=== PATIENT | female | born 1990 | race Caucasian/White ===

== ENCOUNTER 2016-09-02 04:03 | Emergency (ER) | payer OTHER ==
[~2016-09-02] VITALS: Ht 165.1 cm; Wt 87.0 kg
[2016-09-02 04:10] VITALS: BP 130/90; PULSE 109; RESP 24; TEMP 97.8; O2SAT 99
[2016-09-02] MEDS ORDERED: SODIUM CHLOR 0.9% 1000 ML INJ 1,000 ML IV ONE (04:35)
[2016-09-02] MEDS ORDERED: NORE1TAB PO (04:38)
[2016-09-02] MEDS ORDERED: MAXA10TA2 PO (04:38)
[2016-09-02] MEDS ORDERED: CYMB60CA PO (04:38)
[2016-09-02] MEDS ORDERED: GABA600T PO (04:38)
--- NOTE | 2016-09-02 04:40 | PD ---
HPI Chief Complaint: Headache Time Seen by Provider: 04:36 Travel History International Travel<30 days: No Contact w/Intl Traveler<30days: No Traveled to known affect area: No History of Present Illness HPI 26-year-old female presents to the emergency department for complaint of migraine headache. Headache is right-sided was associated photophobia and nausea and vomiting. Headache is typical of her migraines. Last menstrual period was approximately 3 weeks ago and somewhat normal for her although she has had some breakthrough bleeding on her control pills. Patient reportedly has been diagnosed with migraine headaches since age 2. Patient recently moved here from [place] and has not yet established with a primary care provider or neurologist. Patient states headache began around 6 PM last evening and has been persistent. Patient states change in diet and stress oftentimes will trigger a migraine and she has been under a lot of stress reportedly. Patient has family history of migraine in her mother and father as well as multiple extended family members and also family history of cerebral aneurysm. Patient has had imaging study in the past for family history of aneurysm that has been reportedly negative. Patient does not report any recent febrile illness or respiratory illness no report of neck pain or stiffness. No report of new upper extremity or lower extremity numbness tingling or weakness or ataxia of gait. Patient rates pain 9/10 in intensity. Patient does not describe the pain as sudden onset thunderclap or worst ever. Patient does note urinary frequency. PFSH Past Medical History Narrative Medical Migraine headache peptic ulcer disease, Titi's asthma cholecystectomy orthopedic surgery no tobacco use nursing notes reviewed Family History Family History: headaches migraines Social History Tobacco Use: No Allergies-Medications (Allergen,Severity, Reaction): Coded Allergies: Codeine (Verified Allergy, Severe, Itching, 09/02/16) "HOT AND ITCHY, ABOUT TO PASS OUT" Lanolin (Verified Allergy, Severe, Rash, 09/02/16) Penicillin (Verified Allergy, Severe, Shortness of Breath, 09/02/16) Adhesives (Verified Allergy, Intermediate, Rash, 09/02/16) Nonsteroidal Anti-Inflammatory Agts (Verified Adverse Reaction, Unknown, ) "HAVE A HISTORY OF ULCERS, NOT ALLOWED TO HAVE THEM" Reported Meds & Prescriptions Reported Meds & Active Scripts Active Zofran Odt (Ondansetron Odt) 4 Mg Tab 4 Mg SL Q6HR PRN Bactrim DS (Sulfamethoxazole-Trimethoprim) 800-160 Mg Tab 1 Tab PO BID Reported Maxalt (Rizatriptan Benzoate) 10 Mg Tab 1 Tab PO BID PRN Cymbalta DR (Duloxetine HCl) 60 Mg Capdr 100 Mg PO DAILY Gabapentin 600 Mg Tab 600 Mg PO HS [place] Fe /20 (Norethindrone-Ethinyl Estradiol-Fe) 1-20 Mg-Mcg Tab 1 Tab PO DAILY Narrative Medication control pills Review of Systems Except as stated in HPI: all other systems reviewed are Neg General / Constitutional: No: Fever, Chills Eyes: Positive: Photophobia, No: Diploplia, Blurred Vision HENT: Positive: Headaches, No: Neck Stiffness, Neck Pain Cardiovascular: No: Chest Pain or Discomfort Respiratory: No: Shortness of Breath Gastrointestinal: Positive: Nausea, Vomiting, No: Abdominal Pain Genitourinary: Positive: Frequency, No: Urgency, Dysuria, Hematuria, Flank Pain Musculoskeletal: No: Myalgias, Arthralgias Skin: No Rash Neurologic: Positive: Headache, No: Weakness, Dizziness, Syncope, Focal Abnormalities, Coordination Problem, Change in Mentation, Slurred Speech, Paresthesia Psychiatric: No: Anxiety Hematologic/Lymphatic: No: Easy Bruising Physical Exam Narrative GENERAL: Well-developed well-nourished female in no acute distress no respiratory distress; GCS 15 SKIN: Warm and dry. HEAD: Normocephalic. EYES: No scleral icterus. No injection or drainage. Pupils equal round reactive to light extraocular muscles intact. Funduscopic exam no papilledema. NECK: Supple, trachea midline. No JVD or lymphadenopathy. No meningismus no nuchal rigidity. CARDIOVASCULAR: Regular rate and rhythm without murmurs, gallops, or rubs. RESPIRATORY: Breath sounds equal bilaterally. No accessory muscle use. GASTROINTESTINAL: Abdomen soft, non-tender, nondistended. MUSCULOSKELETAL: No cyanosis, or edema. BACK: Nontender without obvious deformity. No CVA tenderness. Data Data Last Documented VS Vital Signs Date Time Temp Pulse Resp B/P Pulse Ox O2 Delivery O2 Flow Rate FiO2 09/02/16 06:42 87 18 124/78 98 09/02/16 05:55 Room Air 09/02/16 04:10 97.8 Orders Ecg Monitoring (09/02/16 04:35) Iv Access Insert/Monitor (09/02/16 04:35) Oximetry (09/02/16 04:35) Sodium Chloride 0.9% Flush (Ns Flush) (09/02/16 04:45) Prochlorperazine Inj (Compazine Inj) (09/02/16 04:45) Diphenhydramine Inj (Benadryl Inj) (09/02/16 04:45) Sodium Chlor 0.9% 1000 Ml Inj (Ns 1000 M (09/02/16 04:35) Ed Urine Pregnancytest Poc (09/02/16 04:40) Urinalysis - C+S If Indicated (09/02/16 04:40) Urine Culture (09/02/16 04:50) Sulfamet-Trimeth Ds 800-160 Mg (Bactrim (09/02/16 06:30) Labs Laboratory Tests Test 09/02/16 04:50 Urine Color STRAW Urine Turbidity CLEAR Urine pH 6.0 Urine Specific [place] 1.014 Urine Protein NEG mg/dL Urine Glucose (UA) NEG mg/dL Urine Ketones NEG mg/dL Urine Occult Blood TRACE Urine Nitrite NEG Urine Bilirubin NEG Urine Leukocyte Esterase NEG Urine RBC 0-3 /hpf Urine WBC 3-5 /hpf Urine Squamous Epithelial 6-8 /hpf Cells Urine Bacteria MANY /hpf Microscopic Urinalysis Comment CULTURE INDICATED MDM Medical Decision Making Medical Screen Exam Complete: Yes Emergency Medical Condition: Yes Medical Record Reviewed: Yes Interpretation(s) Urinalysis: Many bacteria culture indicated POC hCG: Negative Differential Diagnosis Cephalgia-migraine versus tension versus vascular versus allergic Narrative Course IV access obtained patient placed on monitor normal saline bolus administered Compazine 10 mg IV ordered along with Benadryl 50 mg IV At 6:20 AM patient is clinically improved and stable for outpatient management. Patient is identified to have many bacteria on urinalysis. Culture is indicated. Patient given first dose of oral antibiotic in the emergency department. Diagnosis Primary Impression: Migraine headache Qualified Code: G43.909 - Migraine without status migrainosus, not intractable , unspecified migraine type Additional Impression: Bacteriuria Referrals: Primary Care Physician call for appointment Patient Instructions: General Instructions Med/Other Pt SpecificInfo: Prescription(s) given Scripts Ondansetron Odt (Zofran Odt)4 Mg Tab4 Mg SL Q6HR PRN (Nausea/Vomiting) #7 TAB Ref 0 Prov:Yoly Galindo MD 09/02/16 Sulfamethoxazole-Trimethoprim (Bactrim DS)800-160 Mg Tab1 Tab PO BID #14 TAB Ref 0 Prov:Yoly Galindo MD 09/02/16 Disposition: 01 DISCHARGE HOME Condition: Stable Yoly Galindo MD Sep 02, 2016 04:40
[2016-09-02] MEDS ORDERED: PROCHLORPERAZINE INJ 10 MG/2 ML VIAL IVP ONE (04:45)
[2016-09-02] MEDS ORDERED: SODIUM CHLORIDE 0.9% FLUSH 5 ML FLUSH IVF PRN (04:45)
[2016-09-02] MEDS ORDERED: diphenhydrAMINE HCL 50 MG/ML VIAL IVP ONE (04:45)
[2016-09-02 05:21] VITALS: BP 128/71; PULSE 94; RESP 18; O2SAT 96
[2016-09-02 05:23] LABS: BLOOD, URINE TRACE (NEG); GLUCOSE,URINE NEG (NEG); KETONE, URINE NEG (NEG); NITRITE,URINE NEG (NEG)
[2016-09-02 05:24] LABS: URINE COLOR STRAW (YELLW/STRAW)
[2016-09-02 05:27] LABS: RBC, URINE 0-3 /hpf (0-3)
[2016-09-02 05:28] LABS: BACTERIA, URINE MANY /hpf; COMMENT (UR) CULTURE INDICATED; CULTURE IF INDICATED CULTURE INDICATED
[2016-09-02 05:55] VITALS: BP 110/59; PULSE 91; RESP 18; O2SAT 97
[2016-09-02] MEDS ORDERED: BACT800T5 PO (06:20)
[2016-09-02] MEDS ORDERED: ZOFR4TAB3 SL (06:20)
[2016-09-02] MEDS ORDERED: SULFAMETHOXAZOLE-TRIMETHOPRIM DS 800-160 MG TAB PO ONE (06:30)
[2016-09-02 06:42] VITALS: BP 124/78
== END 2016-09-02 06:47 | disposition home or self-care (01) ==
LOC: PHED 04:03
DX: G43.909 Migraine, unspecified, not intractable, without status migrainosus (principal); R82.71 Bacteriuria; J45.909 Unspecified asthma, uncomplicated; E06.3 Autoimmune thyroiditis; B96.20 Unspecified Escherichia coli [E. coli] as the cause of diseases classified elsewhere
CPT/HCPCS: 81001; 84703; 87077; 87086; 87186; 96361; 96374; 96375; 99283; J0780; J1200; J7030

== ENCOUNTER 2017-05-13 14:56 | Emergency (ER) | payer OTHER ==
[~2017-05-13] VITALS: Ht 167.6 cm; Wt 92.8 kg
[~2017-05-13 14:56] MED LIST: BACT800T5 PO; CYMB60CA PO; GABA600T PO; MAXA10TA2 PO; NORE1TAB PO; ZOFR4TAB3 SL
[2017-05-13 15:00] VITALS: BP 130/75; PULSE 120; RESP 16; TEMP 98.5; O2SAT 97
[2017-05-13] MEDS ORDERED: DULO-39 PO (15:06)
[2017-05-13] MEDS ORDERED: AMBI10TA PO (15:07)
[2017-05-13] MEDS ORDERED: ACETAMINOPHEN 325 MG TAB PO ONE (15:30)
--- NOTE | 2017-05-13 15:45 | PD ---
HPI . Right wrist and shoulder pain Chief Complaint: Injury Time Seen by Provider: 15:13 Travel History International Travel<30 days: No Contact w/Intl Traveler<30days: No Traveled to known affect area: No History of Present Illness HPI 26-year-old female presents emergency department for evaluation of right wrist and shoulder pain that started 2 days ago when she tripped over her cat. Patient extended her right arm to catch her fall and hyperflexed her right wrist. Patient went to an urgent care yesterday where they x-rayed it but the patient said the results were inconclusive due to the radiologist not being on site to read it. Patient was informed that they would call her today with conclusive results but she has not heard from them yet. Patient states that what brought her in today is that she now has numbness and tingling on the lateral aspect of the right hand ranging from the distal portion of the fifth digit extending upward to the wrist. The patient has full range of motion in her right wrist, all 5 fingers, elbow and shoulder. Patient complains of pinpoint pain and tenderness over the acromion. There is mild edema and ecchymosis noted to the right wrist extending downward towards the digits, no obvious deformity or erythema. There is no edema, ecchymosis or erythema noted to the elbow or the shoulder. The patient's only major medical history is migraines and depression. The patient takes gabapentin daily for her migraine pain. Patient denies any other physiological complaints at this time. Patient denies any other injuries or pain, chest pain, shortness breath, nausea, vomiting, chills, abdominal pain or lightheadedness. PFSH Past Medical History Asthma: Yes (MILD) Anxiety: Yes Depression: Yes GERD: Yes Immunizations Current: Yes Migraines: Yes (SINCE AGE 2) Thyroid Disease: Yes Influenza Vaccination: No ?: Not LMP: 3 WEEK AGO : 0 Past Surgical History Cholecystectomy: Yes Oral Surgery: Yes (WISDOM TEETH) Social History Alcohol Use: Yes ("SOCIALLY") Tobacco Use: No Substance Use: Yes (THC) Allergies-Medications (Allergen,Severity, Reaction): Coded Allergies: codeine (Unverified Allergy, Severe, Itching, 05/13/17) "HOT AND ITCHY, ABOUT TO PASS OUT" lanolin (Unverified Allergy, Severe, Rash, 05/13/17) penicillin G (Unverified Allergy, Severe, Shortness of Breath, 05/13/17) adhesive (Unverified Allergy, Intermediate, Rash, 05/13/17) diclofenac (Unverified Adverse Reaction, Unknown, 05/13/17) "HAVE A HISTORY OF ULCERS, NOT ALLOWED TO HAVE THEM" etodolac (Unverified Adverse Reaction, Unknown, 05/13/17) "HAVE A HISTORY OF ULCERS, NOT ALLOWED TO HAVE THEM" flurbiprofen (Unverified Adverse Reaction, Unknown, 05/13/17) "HAVE A HISTORY OF ULCERS, NOT ALLOWED TO HAVE THEM" ibuprofen (Unverified Adverse Reaction, Unknown, 05/13/17) "HAVE A HISTORY OF ULCERS, NOT ALLOWED TO HAVE THEM" indomethacin (Unverified Adverse Reaction, Unknown, 05/13/17) "HAVE A HISTORY OF ULCERS, NOT ALLOWED TO HAVE THEM" ketoprofen (Unverified Adverse Reaction, Unknown, 05/13/17) "HAVE A HISTORY OF ULCERS, NOT ALLOWED TO HAVE THEM" ketorolac (Unverified Adverse Reaction, Unknown, 05/13/17) "HAVE A HISTORY OF ULCERS, NOT ALLOWED TO HAVE THEM" naproxen (Unverified Adverse Reaction, Unknown, 05/13/17) "HAVE A HISTORY OF ULCERS, NOT ALLOWED TO HAVE THEM" oxaprozin (Unverified Adverse Reaction, Unknown, 05/13/17) "HAVE A HISTORY OF ULCERS, NOT ALLOWED TO HAVE THEM" Reported Meds & Prescriptions Reported Meds & Active Scripts Active Zofran Odt (Ondansetron Odt) 4 Mg Tab 4 Mg SL Q6HR PRN Reported Ambien (Zolpidem Tartrate) 10 Mg Tab 10 Mg PO HS PRN Duloxetine DR (Duloxetine HCl) 40 Mg Capdr 80 Mg PO DAILY Maxalt (Rizatriptan Benzoate) 10 Mg Tab 1 Tab PO BID PRN Gabapentin 600 Mg Tab 600 Mg PO BID [place] Fe 1/20 (Norethindrone-Ethinyl Estradiol-Fe) 1-20 Mg-Mcg Tab 1 Tab PO DAILY Review of Systems Except as stated in HPI: all other systems reviewed are Neg Physical Exam Narrative GENERAL: Well-nourished, well-developed 26-year-old female patient that appears older than stated age. In no acute distress. Nontoxic appearing. SKIN: Focused skin assessment warm/dry. HEAD: Normocephalic. Atraumatic. EYES: No scleral icterus. No injection or drainage. NECK: Supple, trachea midline. No JVD or lymphadenopathy. CARDIOVASCULAR: Regular rate and rhythm without murmurs, gallops, or rubs. RESPIRATORY: Breath sounds equal bilaterally. No accessory muscle use. GASTROINTESTINAL: Abdomen soft, non-tender, nondistended. MUSCULOSKELETAL: Mild edema and ecchymosis noted to the right wrist extending downward to the digits predominantly on the lateral aspect. No obvious deformity, or erythema. Pin point pain over the right acromion. Full range of motion noted to the right upper extremity. No obvious deformity, ecchymosis, edema or erythema noted to the right shoulder or elbow. BACK: No midline spinal tenderness. No obvious deformity, ecchymosis or erythema. No CVA tenderness. Data Data Last Documented VS Vital Signs Date Time Temp Pulse Resp B/P (MAP) Pulse Ox O2 Delivery O2 Flow Rate FiO2 05/13/17 15:00 98.5 120 16 130/75 (93) 97 Orders Orders Shoulder, Complete (>2vws) (05/13/17 15:21) Wrist, Complete ([id number]) (05/13/17 15:21) Ice/Cold Pack (05/13/17 15:21) Acetaminophen (Tylenol) (05/13/17 15:30) MDM Medical Decision Making Medical Screen Exam Complete: Yes Emergency Medical Condition: Yes Differential Diagnosis Differential diagnoses include but not limited to right wrist fracture, right wrist sprain, right hand fracture, right hand contusion, right shoulder contusion, right shoulder fracture Narrative Course 26-year-old female presents emergency department for evaluation of right wrist and shoulder pain that started 2 days ago when she tripped over her cat. X-ray of the right wrist and shoulder ordered and pending. Ice applied to the right wrist. Acetaminophen ordered for pain control. X-ray of the right shoulder shows no acute injury. X-ray of the right wrist shows no acute injury. Based on patient's symptoms, clinical presentation, radiological results, vital sign review and physical exam it is not necessary to admit the patient to the hospital or keep the patient in the emergency department for further evaluation. Patient will be discharged home with instructions for rice therapy and to follow-up with her primary care. Patient really has a brace for her right wrist from the urgent care she went to yesterday. Diagnosis Primary Impression: Wrist sprain Qualified Codes: S63.501A - Unspecified sprain of right wrist, initial encounter Patient Instructions: General Instructions, Wrist Sprain (ED) Additional Instructions: Please return to emergency department if your symptoms return or worsen. Follow up with your primary care provider. Rice therapy to right upper extremity, rest, ice, use wrist brace and elevate when resting. Disposition: 01 DISCHARGE HOME Condition: Stable Erica Lechuga May 13, 2017 15:45
--- NOTE | 2017-05-13 16:05 | RADRPT ---
EXAM DATE/TIME: 05/13/2017 15:26 [facility] COMPARISON: No previous studies available for comparison. INDICATIONS : Right shoulder pain. MEDICAL HISTORY : None. SURGICAL HISTORY : None. ENCOUNTER: Initial ACUITY: 2 days PAIN SCORE: 4/10 LOCATION: Right shoulder. FINDINGS: Multiple view examination of the right shoulder demonstrates no evidence of fracture or dislocation. The glenohumeral and acromioclavicular joints are maintained. There is normal range of motion betwe en internal and external rotation. Bony mineralization is normal. CONCLUSION: No acute osseous injury. Peter Suarez MD on May 13, 2017 at 16:03 Board Certified Radiologist. This report was verified electronically.
--- NOTE | 2017-05-13 16:06 | RADRPT ---
EXAM DATE/TIME: 05/13/2017 15:26 [facility] COMPARISON: No previous studies available for comparison. INDICATIONS : Right wrist pain. MEDICAL HISTORY : None. SURGICAL HISTORY : None. ENCOUNTER: Initial ACUITY: 2 days PAIN SCORE: 6/10 LOCATION: Right wrist. FINDINGS: Three view examination of the right wrist demonstrates no soft tissue swelling, dislocation, or fract ure. The carpal bones are in normal alignment. The joint spaces are maintained. Bony mineralizatio n is normal. CONCLUSION: No acute osseous injury. Peter Suarez MD on May 13, 2017 at 16:04 Board Certified Radiologist. This report was verified electronically.
== END 2017-05-13 17:00 | disposition home or self-care (01) ==
LOC: PHEFT 14:56
DX: S63.501A Unspecified sprain of right wrist, initial encounter (principal); M25.511 Pain in right shoulder; R20.0 Anesthesia of skin; R20.2 Paresthesia of skin; E07.9 Disorder of thyroid, unspecified; Z87.09 Personal history of other diseases of the respiratory system; Z86.59 Personal history of other mental and behavioral disorders; Z87.19 Personal history of other diseases of the digestive system; Z86.69 Personal history of other diseases of the nervous system and sense organs; W01.0XXA Fall on same level from slipping, tripping and stumbling without subsequent striking against object, initial encounter
CPT/HCPCS: 73030; 73110; 99284